=== PATIENT | male | born 1955 | race Caucasian/White ===

== ENCOUNTER 2018-11-21 10:29 | Outpatient (REF) | payer BC, SELFPAY ==
[2018-11-21 23:34] LABS: Calculated LDL 162 mg/dL; Cholesterol 235 mg/dL (50-200); HDL Cholesterol 42 mg/dL (40-60); Triglyceride 156 mg/dL (30-150)
== END 2018-11-21 10:49 ==
LOC: NCHCN 10:29
PROVIDERS: PCP Physician Assistant Medical; Visit Provider Physician Assistant Medical
DX: Z00.00 Encounter for general adult medical examination without abnormal findings (principal); Z13.220 Encounter for screening for lipoid disorders
CPT/HCPCS: 80048; 80061; 83721

== ENCOUNTER 2018-11-30 08:17 | Outpatient (REF) | payer BC, SELFPAY ==
[2018-11-30 20:15] LABS: Anion Gap 7.7 mmol/L (3-11); BUN 18 mg/dL (7-18); CO2 28.3 mmol/L (21.0-32.0); CREATININE 0.96 mg/dL (0.70-1.30); Chloride 106 mmol/L (98-107); Glucose 101 mg/dL (70-100); Potassium 4.4 mmol/L (3.5-5.1); Sodium 142 mmol/L (136-145)
== END 2018-11-30 08:37 ==
LOC: NCHCN 08:17
PROVIDERS: PCP Physician Assistant Medical; Visit Provider Physician Assistant Medical
DX: Z00.00 Encounter for general adult medical examination without abnormal findings (principal); Z13.228 Encounter for screening for other metabolic disorders
CPT/HCPCS: 80048

== ENCOUNTER 2020-03-28 12:32 | Outpatient (REF) | payer OTHER, SELFPAY ==
[2020-03-28 19:17] LABS: Abs Immature Grans 0.01 10^3/uL (0.0-0.06); Absolute Basophil Count 0.04 10^3/uL (0.0-0.2); Absolute Eosinophil Count 0.12 10^3/uL (0.0-0.7); Absolute Lymphocyte Count 1.42 10^3/uL (1.2-3.4); Absolute Monocyte Count 0.46 10^3/uL (0.1-0.8); Absolute Neutrophil Count 4.65 10^3/uL (1.2-6.7); Basophils % 0.6; Eosinophils % 1.8; HCT 43.8 % (40.0-50.0); HGB 14.8 g/dL (13.5-17.5); Immature Grans % 0.1; Lymphocytes % 21.2; MCH 30.7 pg (27.0-33.0); MCHC 33.8 % (32.0-36.0); MCV 90.9 fL (80-95); Monocytes % 6.9; Neutrophils % 69.4; Nucleated RBC 0 %; Platelet Count 244 10^3/uL (130-400); RBC 4.82 10^6/uL (4.36-5.78); RDW 11.9 % (11.8-14.1); RDW-SD 39.8 fL
[2020-03-28 19:48] LABS: ALT 44 U/L (16-63); AST 26 U/L (15-37); Albumin 4.1 g/dL (3.4-5.0); Alkaline Phosphatase 70 U/L (46-116); BUN 17 mg/dL (7-18); Bilirubin, Total 0.4 mg/dL (0.2-1.0); CREATININE 1.19 mg/dL (0.70-1.30); Calcium 9.1 mg/dL (8.5-10.1); Chloride 106 mmol/L (98-107); Glucose 94 mg/dL (74-106); LDL CHOLESTEROL 169 mg/dL (<100); Potassium 4.7 mmol/L (3.5-5.1); Sodium 143 mmol/L (136-145); TSH (W/Ref FT4) 1.92 uIU/mL (0.36-3.74); Total Protein 7.1 g/dL (6.4-8.2)
[2020-03-28 20:05] LABS: C-Reactive Protein 0.07 mg/dL (0.0-0.3)
[2020-03-28 21:28] LABS: ESR 9 mm/hr (1-20)
== END 2020-03-28 12:52 ==
LOC: NCHCN 12:32
PROVIDERS: PCP Physician Assistant Medical; Visit Provider Physician Assistant
DX: E78.5 Hyperlipidemia, unspecified (principal); R03.0 Elevated blood-pressure reading, without diagnosis of hypertension; H53.412 Scotoma involving central area, left eye
CPT/HCPCS: 80053; 83721; 85652; 84443; 85025; 86140

== ENCOUNTER 2020-04-09 11:25 | Outpatient (REF) | payer OTHER, SELFPAY ==
[2020-04-13 11:53] LABS: Patient Race White; SARS-CoV-2 RNA Undetected (Undetected); SARS-CoV-2 Specimen Source Nasal
== END 2020-04-09 11:45 ==
LOC: NCHCN 11:25
PROVIDERS: PCP Physician Assistant; Visit Provider Physician Assistant
DX: Z20.828 Contact with and (suspected) exposure to other viral communicable diseases (principal)
CPT/HCPCS: U0003

== ENCOUNTER 2020-04-12 02:42 | Outpatient (CLI) | payer OTHER, SELFPAY ==
--- NOTE | 2020-04-12 | DI.US_ITS ---
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 COMPARISON: No exams were available for comparison FINDINGS: Duplex evaluation of the carotid circulation was performed according to the usual protocol. There is little if any visible atheromatous plaque in the region surveyed. There is bilateral antegrade vert ebral flow. There is no significant flow velocity elevation in the common, internal, or external car otid arteries on the right or left. IMPRESSION: No evidence of a hemodynamically significant carotid stenosis. DATA REPOSITORY:
== END 2020-04-12 03:02 ==
PROVIDERS: PCP Physician Assistant; Visit Provider Physician Assistant
DX: E78.5 Hyperlipidemia, unspecified (principal); H53.412 Scotoma involving central area, left eye; R03.0 Elevated blood-pressure reading, without diagnosis of hypertension
CPT/HCPCS: 93880

== ENCOUNTER 2020-09-26 14:52 | Outpatient (REF) | payer OTHER, SELFPAY ==
[2020-09-27 16:59] LABS: PSA, Screening 1.8 ng/mL (0.0-4.5)
== END 2020-09-26 14:53 | disposition home or self-care (01) ==
LOC: NCHCN 14:52
PROVIDERS: PCP Physician Assistant; Visit Provider Physician Assistant
DX: R36.1 Hematospermia (principal); Z12.5 Encounter for screening for malignant neoplasm of prostate
CPT/HCPCS: 84153

== ENCOUNTER 2020-09-30 02:30 | Outpatient (CLI) | payer OTHER, SELFPAY ==
--- NOTE | 2020-09-30 | DI.US_ITS ---
Exam(s) US SCROTUM EXAM: US SCROTUM CLINICAL HISTORY: HEMATOSPERMIA, R36.1 TECHNIQUE: Ultrasound of the testes performed using grayscale, color, and Doppler imaging. COMPARISON: None FINDINGS: RIGHT HEMISCROTUM: The right testicle exhibits normal size and echo architecture with no evidence of intratesticular mas s. Vascular flow was demonstrated within the right testicle, including arterial waveforms. The epididymis appears unremarkable. There are no epididymal head cysts. Small hydrocele evident. Also small varicocele. LEFT HEMISCROTUM: The left testicle exhibits normal size and echo architecture with no evidence of intratesticular mass . Vascular flow is demonstrated within the left testicle, including arterial waveforms. Small hydrocele. No varicocele. IMPRESSION: 1. No evidence of testicular mass nor testicular torsion. 2. Small bilateral hydroceles. 3. Small varicocele right-side. DATA REPOSITORY:
== END 2020-09-30 02:50 ==
PROVIDERS: PCP Physician Assistant; Visit Provider Physician Assistant
DX: R36.1 Hematospermia (principal); N43.3 Hydrocele, unspecified
CPT/HCPCS: 76870

== ENCOUNTER 2020-10-04 10:00 | Outpatient (REF) | payer OTHER, SELFPAY ==
[2020-10-04 15:17] LABS: Bacteria Negative HPF (Negative); C & S Indicated? No; Casts Negative LPF (Negative); Crystals Mod Calcium Oxalate HPF (Negative); Epithelial Cells Negative HPF (Negative); Mucus Negative (Negative); Other Cells Negative (Negative); RBC 0-2 HPF (0-2)
[2020-10-08 10:24] LABS: Chlamydia Result Negative (Negative); GC Result Negative (Negative)
== END 2020-10-04 10:01 | disposition home or self-care (01) ==
LOC: NCHCN 10:00
PROVIDERS: PCP Physician Assistant; Visit Provider Physician Assistant
DX: R36.1 Hematospermia (principal)
CPT/HCPCS: 87491; 87591; 81015

== ENCOUNTER 2020-10-31 13:17 | Outpatient (REF) | payer OTHER, SELFPAY ==
[2020-10-31 19:11] LABS: ALT 53 U/L (16-63); AST 28 U/L (15-37); Alkaline Phosphatase 75 U/L (46-116); Anion Gap 5.8 mmol/L (3-11); BUN 22 mg/dL (7-18); Bilirubin, Total 0.5 mg/dL (0.2-1.0); CO2 30.2 mmol/L (21.0-32.0); CREATININE 1.2 mg/dL (0.70-1.30); Calcium 9.1 mg/dL (8.5-10.1); Chloride 106 mmol/L (98-107); Glucose 150 mg/dL (74-106); LDL CHOLESTEROL 125 mg/dL (<100); Potassium 4.1 mmol/L (3.5-5.1); Sodium 142 mmol/L (136-145)
[2020-10-31 19:24] LABS: Bacteria Negative HPF (Negative); C & S Indicated? No; Casts Negative LPF (Negative); Crystals Negative HPF (Negative); Epithelial Cells Negative HPF (Negative); Mucus Negative (Negative); Other Cells Negative (Negative); WBC Negative HPF (0-5)
== END 2020-10-31 13:18 | disposition home or self-care (01) ==
LOC: NCHCN 13:17
PROVIDERS: PCP Physician Assistant; Visit Provider Physician Assistant
DX: E78.5 Hyperlipidemia, unspecified (principal); R31.21 Asymptomatic microscopic hematuria
CPT/HCPCS: 80053; 83721; 81015

== ENCOUNTER → 2020-12-19 11:08 | Outpatient (BNVA) | payer OTHER, SELFPAY | PROVIDERS: PCP Physician Assistant; Referring Provider Physician Assistant; Visit Provider Nurse Practitioner Gerontology | DX: R31.29 Other microscopic hematuria (principal); N52.9 Male erectile dysfunction, unspecified; Z87.438 Personal history of other diseases of male genital organs | CPT/HCPCS: 99205 ==

== ENCOUNTER → 2021-06-19 09:51 | Outpatient (BNVA) | payer OTHER, SELFPAY | PROVIDERS: PCP Physician Assistant; Referring Provider Physician Assistant; Visit Provider Nurse Practitioner Gerontology | DX: R31.29 Other microscopic hematuria (principal); Z87.438 Personal history of other diseases of male genital organs | CPT/HCPCS: 81003; 99214 ==

== ENCOUNTER 2021-09-23 20:31 | Outpatient (REF) | payer MEDICARE, SELFPAY ==
[2021-09-23 20:25] LABS: ALT 50 U/L (16-63); AST 28 U/L (15-37); Albumin 3.9 g/dL (3.4-5.0); Alkaline Phosphatase 78 U/L (46-116); Anion Gap 7.8 mmol/L (3-11); BUN 21 mg/dL (7-18); Bilirubin, Total 0.7 mg/dL (0.2-1.0); CO2 29.2 mmol/L (21.0-32.0); CREATININE 1.1 mg/dL (0.70-1.30); Calcium 8.8 mg/dL (8.5-10.1); Calculated LDL 173 mg/dL (<100); Chloride 106 mmol/L (98-107); Cholesterol 238 mg/dL (<200); Glucose 95 mg/dL (74-106); HDL Cholesterol 42 mg/dL (40-60); Sodium 143 mmol/L (136-145); Total Protein 6.9 g/dL (6.4-8.2); Triglyceride 119 mg/dL (<150)
== END 2021-09-23 20:32 | disposition home or self-care (01) ==
LOC: NCHCN 20:31
PROVIDERS: PCP Physician Assistant; Visit Provider Physician Assistant
DX: E78.5 Hyperlipidemia, unspecified (principal); R73.03 Prediabetes
CPT/HCPCS: 80053; 80061

== ENCOUNTER 2022-03-31 14:02 | Outpatient (REF) | payer MEDICARE, SELFPAY ==
[2022-03-31 20:32] LABS: Calculated LDL 145 mg/dL (<100); Cholesterol 217 mg/dL (<200); HDL Cholesterol 46 mg/dL (40-60); Triglyceride 131 mg/dL (<150)
== END 2022-03-31 14:03 | disposition home or self-care (01) ==
LOC: NCHCN 14:02
PROVIDERS: PCP Physician Assistant; Visit Provider Physician Assistant
DX: E78.5 Hyperlipidemia, unspecified (principal)
CPT/HCPCS: 80061

== ENCOUNTER → 2022-06-18 10:20 | Outpatient (BNVA) | payer MEDICARE, SELFPAY | PROVIDERS: PCP Physician Assistant; Referring Provider Physician Assistant; Visit Provider Nurse Practitioner Gerontology | DX: R36.1 Hematospermia (principal); N52.9 Male erectile dysfunction, unspecified; R31.29 Other microscopic hematuria | CPT/HCPCS: 36415; 81003; 99214 ==

== ENCOUNTER 2022-06-18 15:46 | Outpatient (REF) | payer MEDICARE, SELFPAY ==
[2022-06-18 12:27] LABS: Bilirubin Negative (Negative); Blood Trace-intact (Negative); Clarity Clear (Clear); Glucose Negative (Negative); Ketones Negative (Negative); Leukocyte Esterase Negative (Negative); Nitrite Negative (Negative); Urobilinogen 0.2 EU/dL (Up TO 0.2)
[2022-06-18 12:33] LABS: Bacteria Negative HPF (Negative); C & S Indicated? No; Casts Negative LPF (Negative); Crystals Negative HPF (Negative); Epithelial Cells Rare HPF (Negative); Mucus Negative (Negative); RBC 0-2 HPF (0-2); WBC Negative HPF (0-5)
== END 2022-06-18 15:47 | disposition home or self-care (01) ==
LOC: LBN 15:46
PROVIDERS: PCP Physician Assistant; Visit Provider Nurse Practitioner Gerontology
DX: R31.29 Other microscopic hematuria (principal); R39.9 Unspecified symptoms and signs involving the genitourinary system
CPT/HCPCS: 81003; 81015; 84153

== ENCOUNTER 2022-10-16 13:23 | Outpatient (REF) | payer MEDICARE, SELFPAY ==
[2022-10-16 19:11] LABS: ALT 58 U/L (16-63); AST 31 U/L (15-37); Albumin 3.9 g/dL (3.4-5.0); Alkaline Phosphatase 78 U/L (46-116); Anion Gap 5.1 mmol/L (3-11); BUN 20 mg/dL (7-18); Bilirubin, Total 0.5 mg/dL (0.2-1.0); CO2 30.9 mmol/L (21.0-32.0); CREATININE 1.3 mg/dL (0.70-1.30); Chloride 105 mmol/L (98-107); Estimated GFR 60.21 (mL/min/1.73m2); Glucose 101 mg/dL (74-106); LDL CHOLESTEROL 153 mg/dL (<100); Potassium 4.5 mmol/L (3.5-5.1); Sodium 141 mmol/L (136-145); Total Protein 7.4 g/dL (6.4-8.2)
== END 2022-10-16 13:24 | disposition home or self-care (01) ==
LOC: NCHCN 13:23
PROVIDERS: PCP Physician Assistant; Visit Provider Physician Assistant
DX: E78.5 Hyperlipidemia, unspecified (principal); R73.03 Prediabetes
CPT/HCPCS: 80053; 83721

== ENCOUNTER 2023-09-24 08:51 | Outpatient (REF) | payer MEDICARE, SELFPAY ==
[2023-09-24 18:56] LABS: ALT 41 U/L (16-63); AST 26 U/L (15-37); Albumin 3.8 g/dL (3.4-5.0); Alkaline Phosphatase 73 U/L (46-116); Anion Gap 5.1 mmol/L (3-11); BUN 23 mg/dL (7-18); Bilirubin, Total 0.5 mg/dL (0.2-1.0); CO2 29.9 mmol/L (21.0-32.0); CREATININE 1.1 mg/dL (0.70-1.30); Calculated LDL 110 mg/dL (<100); Chloride 105 mmol/L (98-107); Cholesterol 164 mg/dL (<200); Estimated GFR 73.12 (mL/min/1.73m2); Glucose 114 mg/dL (74-106); HDL Cholesterol 44 mg/dL (40-60); Potassium 4.3 mmol/L (3.5-5.1); Sodium 140 mmol/L (136-145); Total Protein 6.8 g/dL (6.4-8.2); Triglyceride 53 mg/dL (<150)
== END 2023-09-24 08:52 | disposition home or self-care (01) ==
LOC: NCHCN 08:51
PROVIDERS: PCP Physician Assistant; Visit Provider Physician Assistant
DX: E78.5 Hyperlipidemia, unspecified (principal)
CPT/HCPCS: 80053; 80061

== ENCOUNTER → 2024-02-01 08:16 | Outpatient (BNVA) | payer MEDICARE, SELFPAY | PROVIDERS: PCP Physician Assistant; Referring Provider Physician Assistant; Visit Provider Surgery | DX: R19.4 Change in bowel habit (principal) | CPT/HCPCS: 99213 ==

== ENCOUNTER 2024-02-09 06:08 | Day surgery (SDC) | payer MEDICARE, SELFPAY ==
--- NOTE | 2024-02-08 19:27 | PDOC.DSDIS_ITS ---
Date of service: 02/09/24 Time of Service: 07:52 Discharge Plan Disposition Patient Disposition: Home Condition: Good Discharge Details Reason For Visit: Diagnostic colonoscopy Attending Provider: Hal Silveira Primary Care Provider: Ghislaine Johnson Home Meds and New Rx's Prescriptions: Continued sildenafil [Viagra] 50 mg tablet 50 mg PO DAILY PRN (Reason: sexual activity) Qty: 4 0RF Rx Instructions: administer 30 minutes to 4 hours before activity atorvastatin 20 mg tablet 80 mg PO DAILY dorzolamide-timolol 22.3-6.8 mg/mL drops 1 drp ophthalmic (eye) BID Patient Comments: INSTILL 1 DROP INTO THE RIGHT EYE TWO TIMES A DAY Discontinued polyethylene glycol 3350 17 gram/dose powder 238 g PO ONCE Qty: 238 0RF Rx Instructions: take per colonoscopy instructions bisacodyl [Dulcolax (bisacodyl)] 5 mg tablet,delayed release (DR/EC) 5 mg PO ONCE Qty: 4 0RF Rx Instructions: take per colonoscopy instructions Discharge Instructions Instructions: Diverticulosis Additional Instructions: Eduardo, I hope you are comfortable during the colonoscopy today. Everything went very smoothly. Your prep was excellent and I could see everything fine. As we surmised ahead of time, the most obvious thing that I noticed was diverticulos is. I suspect this is probably what is causing the change in character of your stools. The rest of the colon looked pretty normal. I did not see any obvious signs of ulcerative colitis, Crohn's disease, or any other inflammatory problems. As I mentioned before hand, I did do several biopsies along the length of the colon to make sure I am not missing anything that may not be apparent to the naked eye. My typical recommendations for patients with diverticulosis focus on increasing dietary fiber. There are number of food products that are loaded with fiber. I will attach a printout summarizing some of those things. I also recommend the patient's like you supplement their diet with an [id number] product. Anything that contains psyllium is an excellent source of fiber. Most patients need to add about 10 to 20 g of supplementary fiber to the regular diet. If you pay attention to food labels, you will see that this is quite a bit. If you are able to buy pure psyllium finely ground (this is available on [employer]) you can mix it into basically anything that she would like to eat or drink. It typically does not change the flavor or consistency very much if you spread it throughout the course of your day. It will take about a week or 2 for me to get the results of the biopsies, but once I have those I will be in touch. Otherwise, I did not see any other problems on your colonoscopy and from a screening standpoint, you are good for another colonoscopy in 10 years. 1. If tolerated, consume a soft, low fiber diet for 1-2 days. 2[address] Do not drive, drink alcohol, operate machinery, make critical decisions, or do activities that require coordination or balance for 24 hours. 3. Because air was put into your colon during the procedure, expelling air from your rectum (passing gas or farting) is normal. 4. You may not have a bowel movement for 1-3 days because of the colonoscopy prep. This is normal. 5. Go directly to the emergency room if you notice any of the following: Develop chills (warm to touch), or if you have a thermometer and your temperature is above 101 Difficulty breathing or difficultly swallowing Persistent vomiting Severe abdominal pain, other than gas cramps Severe chest pain Black, tarry stools Any bleeding ? exceeding one tablespoon 6. Call your physician if the site where your intravenous was started becomes red, swollen, painful, and warm to touch. 7. Your physician has reviewed your pre-procedure medications. Please continue to take those medications as previously ordered. You will be given specific information/education regarding any changes to your medications before leaving. Activity:: Activity as Tolerated Diet:: As Tolerated Discharge Orders Discharge Orders: Discharge Order (Routine); Ordered 02/08/24 Ordered By: Hal Silveira DS: Diagnosis Discharge Diagnosis (1) Change in bowel habit: Status: Acute Asessment and Plan: Follow-up on biopsy results
--- NOTE | 2024-02-08 19:28 | W.COLOREPORT ---
Date of service: 02/09/24 Time of Service: 07:57 Colonoscopy Report Date of procedure: 02/09/24 Pre-op diagnosis general: Change in bowel habits Post-op diagnosis procedure note: other (Diverticulosis) Procedure: colonoscopy with random colon biopsies Surgeon: Hal Silveira Anesthesia Type: General:No Airway Estimated blood loss (mL): 10 Pathology: other (Random cold forceps biopsies of the colon, random cold forceps biopsies of the rectum) Complications: None Disposition: same day Indications: Eduardo is a 68 year old man with a chief complaint of change in the character and consistency of his stools. He thinks it has been going on for about 6 months, and the symptoms have been slowly evolving. The first difference that he noticed was a decreased caliber in his stools. Prep: Miralax/Dulcolax Procedure Start Time: 07:35 Procedure End Time: 07:51 Retraction Time: 10 Findings: Sigmoid diverticulosis Procedure Description: After the induction of anesthesia, and with the patient in left lateral decubitus position, I began by performing an external anorectal exam.? Perineum and skin were normal, as was the anal verge.? There was no evidence of external hemorrhoids.? Next, I performed a digital rectal exam.? I did not appreciate any abnormal findings.? Next, I advanced a colonoscope into the rectal vault.? I performed retroflexion.? This appeared normal.? Using insufflation, I then advanced the colonoscope beyond the rectal folds and into the sigmoid colon before advancing towards the cecum.? The quality of the prep was outstanding.? There was sigmoid diverticulosis. the scope was noted to be in the cecum by identification of the ileocecal valve and appendiceal orifice.? I then began withdrawing the colonoscope using repeated irrigation as necessary for full evaluation of the colonic mucosa. In light of the patient's previous biopsies showing some colitis, I elected to perform random cold forceps biopsies along the length of the colon today. There were no obvious signs of inflammation that would be consistent with Crohn's disease or ulcerative colitis. once the scope was withdrawn to the level of the rectum, great care was taken to examine portions of the rectal folds.? In addition to the colon biopsies mentioned above, I also performed cold forceps biopsies of the rectum that were sent as a separate pathology specimen. Finally, the scope was withdrawn and the patient was brought to the same-day surgery recovery unit as the anesthetic wore off. ?The findings and instructions were shared with the patient prior to discharge. [place] Bowel Prep [place] Bowel Prep Right Colon: 3 Left Colon: 3 Transverse Colon: 3 Total Score: 9
[2024-02-09 06:29] VITALS: BP 142/96; PULSE 78; RESP 16; TEMP 36.7; O2SAT 97
[2024-02-09] MEDS: Lactated Ringers 1,000 ML 80 ML IV (06:42)
--- NOTE | 2024-02-09 07:06 | W.ANESPRE ---
General Info Date of Service Date Performed: 02/09/24 Height: 5 ft 5 in Weight: 91.3 kg Body Mass Index (BMI): 33.5 Surgical Procedure: Operation Date: 02/09/24 07:35 Proposed Procedure Side Surgeon kris Silveira MD Meds Allergies and Home Medications Allergies Allergy/AdvReac Type Severity Reaction Status Date / Time Penicillins Allergy Unknown rash Unverified 02/01/24 08:23 Home Medication ?Medication ?Instructions ?Recorded sildenafil 50 mg tablet (Viagra) 50 mg PO DAILY PRN sexual activity 06/18/22 #4 tabs atorvastatin 20 mg tablet 80 mg PO DAILY 07/08/23 dorzolamide 22.3 mg-timolol 6.8 1 drp ophthalmic (eye) BID 02/04/24 mg/mL eye drops Current Visit Medications: Current Medications Generic Name Dose Route Start Last Admin Trade Name Freq PRN Reason Stop Dose Admin Ringer's Solution 1,000 mls @ 80 mls/hr 02/09/24 06:00 02/09/24 06:42 IV 03/09/24 23:59 80 mls/hr INFUSION LIZBET Administration IV Miscellaneous Supplies 1 each 02/09/24 06:00 Iv Access IV 03/09/24 23:59 DIRECTED LIZEBT Ondansetron HCl 4 mg 02/08/24 19:30 Ondansetron 4 Mg/2 Ml Vial IVP 03/09/24 19:29 Q4H PRN PRN Nausea / Vomiting Sodium Chloride 0 ml 02/09/24 06:00 Normal Saline Flush 10 Ml Syr IV 03/09/24 23:59 PRN PRN Sodium Chloride 0 ml 02/09/24 06:00 Normal Saline 10 Ml Vial IJ 03/09/24 23:59 DIRECTED PRN Sterile Water 0 ml 02/09/24 06:00 Water,Injection,Sterile 10 Ml Vial IJ 03/09/24 23:59 DIRECTED PRN PFSH Active Problems Active Problems: Problem Status Onset Code Change in bowel habit Acute R19.4 Asymptomatic microscopic hematuria Acute R31.21 Prostate nodule Acute N40.2 Hydrocele Acute N43.3 Hypertension Chronic I10 Erectile dysfunction Acute N52.9 Medical History Medical History (Updated 02/04/24 @ 11:32 by Beena Hickey RN) Glaucoma (increased eye pressure) Lower urinary tract symptoms (LUTS) Ganglion cyst Seborrheic keratosis HLD (hyperlipidemia) Central scotoma Migraine headache Pain in shoulder Hematospermia Microscopic hematuria Varicocele Bilateral hydrocele Obesity Surgical History Surgical History (Updated 01/05/24 @ 13:26 by Lara Moore RN) History of colonoscopy (~2013) Tobacco Smoking/Tobacco Use Status: Never Alcohol Alcohol Intake: current Alcohol intake frequency: a few times a month Substance Use Substance use: Never Substance use type: does not use Vital Signs and Lab Results Vital Signs Most Recent Vital Signs in EMR: Most Recent Vital Signs Temp Pulse Resp BP Pulse Ox 36.7 C 78 16 142/96 H 97 02/09/24 06:29 02/09/24 06:29 02/09/24 06:29 02/09/24 06:29 02/09/24 06:29 Lab Results Blood Type / Crossmatch: No Data to Display Complete Blood Count: No Data to Display Complete Metabolic Panel: No Data to Display Liver Function Panel: No Data to Display Coagulation Panel: No Data to Display Cardiac Panel: No Data to Display Arterial Blood Gas: No Data to Display Venous Blood Gas: No Data to Display Pancreas Panel: No Data to Display Thyroid Panel: No Data to Display Infectious Disease: No Data to Display Blood Cultures: No Data to Display Toxicology Panel: No Data to Display Imaging and Studies Imaging and Studies Study information below may be from another EMR and interpreted by another provider. Please see original notes in EMR for more complete details. Carotid Artery Summary:: 04/12/20: FINDINGS: Duplex evaluation of the carotid circulation was performed according to the usual protocol. There is little if any visible atheromatous plaque in the region surveyed. There is bilateral antegrade vertebral flow. There is no significant flow velocity elevation in the common, internal, or external carotid arteries on the right or left. Anesthesia Assessment and Plan Anesthesia History Personal History: No History of Anesthesia Complications Family History: No Family History of Anesthesia Complications Exercise Tolerance Exercise Tolerance: Metabolic Equivalents>4 Pertinent Negatives Pertinent Negatives: No Symptoms of GERD, No Major Cardiovascular Symptoms or Complaints and No Major Pulmonary Symptoms or Complaints Cardiac & Pulmonary Exam Cardiac Exam: Normal S1/S2 Heart Sounds Pulmonary Exam: Clear Bilateral Breath Sounds Implantable Cardiac Device Does patient have a Pacemaker or an ICD?: No Airway Exam Known Difficult Airway: No Mallampati Class: 1 Mouth Opening: Normal (> 3cm) Thyromental Distance: Greater than 3 cm Neck Range of Motion: Full ROM Neck Circumference: Normal Teeth Condition: Removable Dentures/Plates Upper ASA Classification ASA Score: ASA 2 Emergency Case?: No NPO Status NPO Status: NPO Clears >2 hours, Solids >8 hours Anesthesia Plan Resuscitation Status: Full Code Anesthesia Technique: General Anesthesia Airway Planned: Natural Airway Monitors Used: Standard Monitors
[2024-02-09 07:09] VITALS: BMI 33.5
--- NOTE | 2024-02-09 07:44 | BOWEL_PTH ---
PATIENT: Eduardo Parks LOC: [facility] U#:[id number] AGE/SX: 68/M ROOM: RE02/09/[address]: Hal Silveira MD : 1955 BED: DIS: 02/09/2024 SPEC #: [id number] RECD: 02/09/24 12:35 STATUS: VAIBHAV REQ #: [id number] JEANNIE: 02/09/24 07:[address]: Hal Silveira DEPT: Surgical Specimen RECD BY: Rachel Bonilla ENTERED: 02/09/24 12:36 SP TYPE: Bowel OTHR DR: Ghislaine Johnson Tissues: 1 - BIOPSY BOWEL 2 - BIOPSY BOWEL Procedures: GROSS AND MICRO LEVEL 4 Comments: [id number]
[2024-02-09 07:58] VITALS: BP 113/94; PULSE 76; RESP 16; TEMP 36.5; O2SAT 97
[2024-02-09 08:19] VITALS: BP 117/81; PULSE 71; RESP 16; TEMP 36.2; O2SAT 98
--- NOTE | 2024-02-09 11:20 | W.ANESPOSTOP ---
Postoperative Evaluation Date, Time and Location Date Performed: 02/09/24 Time Performed: :25 Patient Location: Day Surgery Unit Vital Signs Most Recent Imported Vital Signs: Most Recent Vital Signs Temp Pulse Resp BP Pulse Ox 36.2 C L 71 16 117/81 98 02/09/24 08:19 02/09/24 08:19 02/09/24 08:19 02/09/24 08:19 02/09/24 08:19 Pain Score Most Recent Pain Score: Most Recent Pain Score Pain Level 0 02/09/24 08:19 Assessment Mental Status: Awake (Alert & Oriented to Patient Baseline) Airway and Respiratory Function: Patent airway with normal (patient baseline) respiratory exam Cardiovascular Function: Hemodynamically Stable Hydration Status: Adequately Hydrated Nausea & Vomiting: No Nausea or Vomiting Pain: Pt. Denies Any Pain Peripheral Nerve Block: Patient did not receive a nerve block
== END 2024-02-09 08:45 | disposition home or self-care (01) ==
LOC: SUR 06:09
PROVIDERS: PCP Physician Assistant; Visit Provider Surgery
PROC: 0DJD8ZZ Inspection of Lower Intestinal Tract, Via Natural or Artificial Opening Endoscopic (ICD-10-PCS; CPT 45378; principal; 2024-02-09 07:30)
DX: R19.4 Change in bowel habit (principal); K57.30 Diverticulosis of large intestine without perforation or abscess without bleeding
CPT/HCPCS: 45380; 88305; J2704

== ENCOUNTER 2024-05-19 19:47 | Outpatient (REF) | payer MEDICARE, SELFPAY ==
[2024-05-19 19:17] LABS: Abs Immature Grans 0.02 10^3/uL (0.0-0.06); Absolute Basophil Count 0.06 10^3/uL (0.0-0.2); Absolute Eosinophil Count 0.12 10^3/uL (0.0-0.7); Absolute Lymphocyte Count 1.86 10^3/uL (1.2-3.4); Absolute Monocyte Count 0.54 10^3/uL (0.1-0.8); Absolute Neutrophil Count 3.98 10^3/uL (1.2-6.7); Basophils % 0.9 %; Eosinophils % 1.8 %; HCT 42.2 % (40.0-50.0); HGB 14.4 g/dL (13.5-17.5); Immature Grans % 0.3 %; Lymphocytes % 28.3 %; MCHC 34.1 % (32.0-36.0); MCV 91 fL (80-95); MPV 10.7 fL (8.0-11.0); Monocytes % 8.2 %; Neutrophils % 60.5 %; Platelet Count 247 10^3/uL (130-400); RBC 4.65 10^6/uL (4.36-5.78); RDW 11.9 % (11.8-14.1); RDW-SD 39.4 fL; WBC 6.58 10^3/uL (4.4-10.8)
[2024-05-19 19:38] LABS: ALT 35 U/L (16-63); AST 29 U/L (15-37); Albumin 3.8 g/dL (3.4-5.0); Alkaline Phosphatase 81 U/L (46-116); Anion Gap 8.9 mmol/L (3-11); BUN 19 mg/dL (7-18); Bilirubin, Total 0.39 mg/dL (0.2-1.0); CO2 27.1 mmol/L (21.0-32.0); CREATININE 1.2 mg/dL (0.70-1.30); Calcium 9.1 mg/dL (8.5-10.1); Chloride 106 mmol/L (98-107); Estimated GFR 65.46 (mL/min/1.73m2); Glucose 114 mg/dL (74-106); Potassium 3.8 mmol/L (3.5-5.1); Sodium 142 mmol/L (136-145); TSH (W/Ref FT4) 2.86 uIU/mL (0.36-3.74); Total Protein 7.2 g/dL (6.4-8.2)
--- OUTSIDE RECORDS SUMMARY | 2024-05-19 19:48 | XMS_ITS | Encounter Summary ---
Author Organization [facility] Address [address] [place] [address] Care Team Providers Care Cabinetmaker Helper Name Role Phone Unknown, Provider Primary Care Provider Jadyn gonzales Encounter Details Date Type Department Care Team (Late st Contact Info) Description 02/09/2024 Lab Requisition [facility] Pathology & Laboratory Medicine - [address] [address] Hal Silveira MD [address] [place] [address], [address] [place], [place] [id number] Change in bowel habit Social History Tobacco Use Types Packs/Day Years Used Date Smoking Tobacco: Never Assessed Interpersonal Safety Answer Date Record ed Physically Hurt Never 09/27/2020 Verbally Threaten Not on file 09/27/2020 Sex and Gender Information Value Date Recorded Sex Assigned at Not on file Legal Sex Male 11:35 EDT Gender Identity Not on file Sexual Orientation Not on file documented as of this encounter Plan of Treatment Not on file documented as of this encounter Procedures Procedure Name Priority Date/Time Associated Diagnosis Comments SURGICAL PATHOLOGY Today 02/09/2024 7:44 EDT Change in bowel habit documented in this encounter Results * SURGICAL PATHOLOGY (02/09/2024 7:44 EDT) Note to Patient The following pathology results have been interpreted by your pathologist and may be available to you before your health provider has had the opportunity to review them. Please allow time for your provider to receive these results and explore management options, if applicable. 02/15/2024 15:01 EDT [facility] Final Diagnosis A. COLON, BIOPSY: - Colonic mucosa without significant diagnostic abnormality. B. RECTUM, BIOPSY: - Colonic mucosa without significant diagnostic abnormality. 02/15/2024 15:01 [facility] Attestation By the signature below, the attending physician certifies that they have 1) personally conducted a gross and/or microscopic examination of the described specimen(s), and/or personally interpreted the results of laboratory testing of the described specimen(s), and 2) personally rendered or confirmed the above diagnosis. 02/15/2024 15:01 [facility] at 1501 Clinical History Diagnostic colonoscopy, change in bowel habits; clinical diagnosis code: R19.4 02/15/2024 15:01 [facility] Gross Description A. Received in formalin labelled with proper patient identification (initials W, D) and random colon biopsies are 6 vanegas focally brown tissues (0.4 x 0.1 x 0.1 cm to 0.7 x 0.2 x 0.1 cm). Entirely submitted in A1-A2. B. Received in formalin labelled with proper patient identification (initials W, D) and rectal biopsies is a single vanegas and brown tissue (0.4 x 0.3 x 0.2 cm). Entirely submitted in B1. Sonia Burns 02/10/2024 8:38 02/15/2024 15:01 [facility] Performing Lab [facility] 02/15/2024 15:01 [facility] Scanned Images 02/15/2024 15:01 [facility] Tissue SPECIMEN FROM RECTUM / Unknown 02/09/2024 7:44 EDT 02/09/2024 20:33 EDT Tissue specimen (specimen) SPECIMEN FROM RECTUM / Unknown 02/09/2024 7:44 EDT 02/09/2024 20:33 EDT us Hal Silveira MD PATHOLOGY ORDERABLES Final Resu lt [facility] [address] [place] [id number] documented in this encounter Visit Diagnoses Diagnosis Change in bowel habit documented in this encounter Care Teams Cabinetmaker Helper Relationship Specialty Start Date End Date Unknown, Provider, PCP - General 01/16/24 documented as of this encounter
--- OUTSIDE RECORDS SUMMARY | 2024-05-19 19:48 | XMS_ITS | Continuity of Care Document ---
Author Organization [facility], [facility] Address [address] [place] [address] Care Team Providers Care Skylights Assembler Name Role Phone GHISLAINE ALANIS Primary Care Provider NARESH EGORGES Finish Rolls Operator [facility] Urologist Assessment Encounter Date Assessment Date Assessment LastModified by Organization Details LastModified Time 05/19/2024 05/19/2024 The total time devoted to today's encounter, including both the crlt-ub-zbmm time with the patient and/or family/caregi broderick and gps-prrk-fg-f brendon time I personally spent is 30 minutes. [email or web address] Not available 05/19/2024 17:11:06 Plan of Treatment Reminders Order Date Submit Date Provider Last Modified By Organization Details Last Modified Time Details Appointments Follow Up 30 2024 04:30P Efrem ALANIS Not available Not available Not available Annual Wellness Exam 40 2024 08:00A Efrem ALANIS Not available Not available Not available Lab PSA, serum or plasma 2024 025 [facility] (Registration ), [address] [place] [address] [place], [address], 05/19/2024 17:20:32 culture, stool 2024 025 [facility] (Registration ), [address] [place] [address] [place], [address], 05/19/2024 16:53:11 O&P (ova & parasites ), stool [address] [facility] (Registration ), [address] [place] [address] [place], [address], 05/19/2024 16:53:12 CBC w/ auto diff 2024 025 [facility] (Registration ), [address] [place] [address] [place], [address], 05/19/2024 19:20:41 CMP, serum or plasma 2024 025 [facility] (Registration ), [address] [place] [address] [place], [address], 05/19/2024 19:41:46 TSH, serum, reflex free T4 2024 025 [facility] [address] [place] [address] [place], [address], 05/19/2024 17:20:32 H pylori Ag, stool [address] [facility] (Registration ), [address] [place] [address] [place], [address], 05/19/2024 16:53:11 C diff toxin DNA, stool [address] [facility] (Registration ), [address] [place] [address] [place], [address], 05/19/2024 16:53:12 giardia + cryptospo ridium Ag, stool [address] [facility] (Registration ), [address] [place] [address] [place], [address], 05/19/2024 16:53:11 Referral None recorded. Procedures None recorded. Surgeries None recorded. Imaging None recorded. Medication Orders None recorded. Patient TargetsNo targets recorded. Patient Instructions Encounter Date Encounter Id Patient Instructions Last Modified By Organization Details Last Modified Time 05/19/2024 [id number] stool studies ordered- bring in sample probiotics and fiber daily blood work today Not available 05/19/2024 16:55:05 Reason for Referral None Reported. Problems Name Problem SNOMED Code Status Onset Date Resolution Date Notes Provider Name and Address Organization Details Recorded Time Adult health examinat ion Active 201403/31/20 22 - Comments only - Ghislaine MCKEON - Pfizer COVID Bivalent booster and high-dos e flu received today. Up-to-da te on colonosc opy. Checking a lipid panel today. Up-to-da te on other blood work. Discussi on about healthy lifestyl e choices. Discussi on on stress manageme nt Problem Code: Z00.00; Problem Code Type: ICD-10; Not Available [facility] 3 05:51:15 Ganglion cyst of left wrist 36361639764 9100 Active 2015 Problem Code: M67.432; Problem Code Type: ICD-10; Not Available [facility] 3 05:51:15 Senile hyperker atosis 466731406 Active 2015 Problem Code: L82.1; Problem Code Type: ICD-10; Not Available [facility] 3 05:51:15 Elevated blood-pr essure reading without diagnosi s of hyperten fiona 137897260 Completed 201702/11/2024 10/17/19 23 - Comments only - Ghislaine MCKEON - Blood pressure did come down after sitting. Advised patient to check blood pressure at home and call if consiste ntly greater than 140/90. Advised to limit sodium to 2000 mg/day. Encourag e healthy eating and exercise . Problem Code: R03.0; Problem Code Type: ICD-10; [address], [place], [address] , [facility]. 4 11:35:53 Hyperlip idemia 03367579 Active 201910/17/19 23 - Comments only - Ghislaine MCKEON - Checking direct LDL and CMP as atorvast atin was increase d to 40 mg daily. He has not taken it for the past week. Problem Code: E78.5; Problem Code Type: ICD-10; Not Available [facility] 3 05:51:16 Central scotoma of left eye 01639067759 9100 Active 201905/16/20 20 - Comments only - Ghislaine MCKEON - - no concerni ng findings by [facility] op[facility] [facility]y. Per pt this has now resolved as well. keep appt with Dr Georges for f/u with visual field testing. - will continue to monitor Problem Code: H53.412; Problem Code Type: ICD-10; Not Available [facility] 3 05:51:16 Migraine 15793563 Active 201905/16/20 20 - Comments only - Ghislaine MCKEON - - he has not been having these recently - will continue to monitor Problem Code: G43.909; Problem Code Type: ICD-10; Not Available [facility] 3 05:51:16 Exposure to communic able disease Completed 201904/10/2020 Problem Code: Z20.828; Problem Code Type: ICD-10; Not Available [facility] 3 05:51:16 Shoulder joint pain 365322818 Active 201905/16/20 20 - Comments only - Ghislaine MCKEON - - likely rotator cuff strain. offered cortison e injectio ns today but pt declined at this time. he declined xrays at this time. reviewed some stretchi ng and strength ening exercise s. recd take ibu 600-800m h TID with food for 14 days. Return to clinic if not improvin g or worsenin g symptoms Problem Code: M25.519; Problem Code Type: ICD-10; Not Available [facility] 3 05:51:17 Disorder of male genital organ 05774260 Completed 202009/06/2020 09/04/19 21 - Comments only - Ghislaine MCKEON - Reassura nce to patient that his exam was normal. We reviewed the anatomy of the testicle s. He is feeling the epididym is. It is nontende r, not inflamed . No signs or symptoms of epididym itis. No masses of the testicle s. Offered testicul ar ultrasou nd but at this time he was good with just having the exam done. Discusse d signs and symptoms to be aware of. Problem Code: N50.9; Problem Code Type: ICD-10; Not Available [facility] 3 05:51:17 Hemosper joão 29102935 Active 2020 Problem Code: R36.1; Problem Code Type: ICD-10; Not Available [facility] 3 05:51:17 Asymptom atic microsco pic hematuri a 72791965792 730749 Active 202011/01/19 21 - Comments only - Ghislaine MCKEON - /hematos permia/v aricocel e/hydroc eles - sending urine for microsco py - referral to urology [facility] for further evaluati on Problem Code: R31.21; Problem Code Type: ICD-10; Not Available [facility] 3 05:51:17 History and physical examinat ion, administ rative Completed 202011/01/2020 11/01/19 21 - Comments only - Ghislaine MCKEON - - 2 year card issued. 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 discusse d RICE. brendon bandage given. recd ibu 600mg every 6 hrs prn. pt wants to hold off on xray for now. he will call back if he decides he wants an xray order sent to [facility]. Problem Code: M25.562; Problem Code Type: ICD-10; Not Available [facility] 3 05:51:18 Prediabe leland 575603044 Active 202010/17/19 23 - Comments only - Ghislaine MCKEON - A1c increase d to 6.2. Discusse d lifestyl e modifica tions. Problem Code: R73.03; Problem Code Type: ICD-10; Not Available [facility] 3 05:51:18 Perforat ion of left tympanic membrane 45488918621 75321 Completed 202211/10/2022 Problem Code: H72.92; Problem Code Type: ICD-10; Not Available [facility] 3 05:51:18 Acute pharyngi tis 842474968 Completed 202212/04/2022 12/04/19 23 - Comments only - Ghislaine MCKEON - Negative rapid strep. COVID testing at home was negative . Benign exam. Finish eardrops no signs of current infectio n of the perforat ed eardrum. Continue care with ENT. Discusse d supporti ve care. Discusse d signs and symptoms to follow-u p. Problem Code: J02.9; Problem Code Type: ICD-10; Not Available [facility] 3 05:51:19 Hypergly cemia 72692624 Completed 202002/10/2023 03/27/20 21 - Comments only - Ghislaine MCKEON - - discussi on about lifestyl e modifica tions with decreasi ng carbs. will do a1c at fasting BW in 6 months Problem Code: R73.9; Problem Code Type: ICD-10; Not Available [facility] 3 05:51:40 Prostate nodule 31305792589 9109 Active [address], [facility] [address] , [facility] 4 15:39:03 Constipa tabitha 57198380 Completed 202302/11/2024 GHISLAINE ALANIS PA-C [address], [facility] [address] , [facility] 4 11:35:45 Divertic darnell of intestin e 16127920 Active 2023 GHISLAINE ALANIS PA-C [address] [place], [facility] [address] , [facility] 4 11:36:14 Problem Notes None recorded. Medical Equipment None Reported. Allergies Allergen ID Allergen Name Allergen Category Reaction Reaction Severity Criticality Documentation Date Start Date Code Code System Note Provider Name and Address Organization Details Recorded Time 11689 Medicinal product containin g penicilli n and acting as antibacte rial agent (product) medicatio n hives moderate Not available 03/26/20232006 12503 05 SNOMED HIVES Aller gyCod e: '8340 61'; Aller gyNam e: 'PENI CILLI N'; Aller gyCon ceptT ype: 'RX Norm' ; Not Available [facility] 3 16:14:35 Medications Name Sig Start Date Stop Date Status Note LastModified by Organization Details LastModified Time atorvasta tin 40 mg tablet TAKE ONE TABLET BY MOUTH EVERY DAY 12/30 completed Patient states he takes it sparatic ally. dose change Not Available Not Available Not Available atorvasta tin 80 mg tablet TAKE ONE TABLET BY MOUTH EVERY DAY 05/19 completed pt reports not taking Not Available Not Available Not Available atorvasta tin 20 mg tablet Take 1 tablet by mouth once a day 2020 active Not Available Not Available Not Avai lable atorvasta tin 10 mg tablet Take 1 tablet by mouth once a day 03/27 completed Not Available Not Available Not Available ibuprofen 800 mg tablet 1 TID 11/20 completed Not Available Not Available Not Available Plavix 75 mg tablet Take 1 tab by mouth daily 05/14 completed Not Available Not Available Not Available ofloxacin 0.3 % ear drops Instill 5 drop into left ear twice a day For 7 days 07/07 completed Per ER visit 11/08/22 Not Available Not Available Not Available meclizine 25 mg tablet Take 1 tablet every 6 hours as needed. 02/02 completed Not Available Not Available Not Available dorzolami de 22.3 mg-timolo l 6.8 mg/mL eye drops INSTILL 1 DROP INTO THE RIGHT EYE TWO TIMES A DAY 05/19 completed pt reports not taking Not Available Not Available Not Available Bactrim DS 800 mg-160 mg tablet 1 TAB twice daily 02/26 completed Not Available Not Available Not Available Vitals Date Recorded Body height Body mass index (BMI) Body weight Oxygen saturation Oxygen saturation in Arterial blood by Pulse oximetry Heart rate Systolic blood pressure Diastolic blood pressure Provider Name and Address Organization Details Last Updated DateTime 5 163.83 cm 34.7 kg/m2 68221.5 9 g 96 % 96 % 84 /min 144 mm[Hg] 84 mm[Hg] DARWIN BEARD MA [facility] 5 16:36:57 Social History Question Answer Notes LastModified by Organizat ion Details LastModified Time Tobacco Smoking Status Never Smoker MARYAM BOOTHE, [facility] 07/07/2023 13:47:26 Would You Say That, In General, Your Health Is Very Good Information not available 07/07/2023 How Often Does Anyone, Including Family, Physically Hurt You? Never Information not available 07/07/2023 How Often Does Anyone, Including Family, Insult Or Talk Down To You? Never Information no t available 07/07/2023 How Often Does Anyone, Including Family, Threaten You With Harm? Never Information not available 07/07/2023 How Often Does Anyone, Including Family, Scream Or Curse At You? Never Information not available 07/07/2023 Within The Past 12 Months, You Worried That Your Food Would Run Out Before You Got Money To Buy More. Never True Information n ot available 07/07/2023 Within The Past 12 Months, The Food You Bought Just Didn't Last And You Didn't Have Money To Get More. Never True Information n ot available 07/07/2023 How Hard Is It For You To Pay For The Very Basics Like Food, Housing, Medical Care, And Heating? Would You Say It Is: Not Hard At All Information not available 07/07/2023 In The Past 12 Months, Has Lack Of Reliable Transportation Kept You From Medical Appointments, Meetings, Work Or From Getting Things Needed For Daily Living? No Information not available 07/07/2023 What Is Your Housing Situation Today? I Have Housing. Information not available 07/07/2023 How Often In The Past Year Have You Used Marijuana (including Smoking, Vaping, Dabbing, Or Edibles)? Never Information not available 07/07/2023 How Often In The Past Year Have You Used Prescription Medications That Were Not Prescribed To You? Never Information n ot available 07/07/2023 How Often In The Past Year Have You Taken Your Own Prescription Medication More Than The Way It Was Prescribed Or For Different Reasons Than Its Intended Purpose? Never Information no t available 07/07/2023 How Often In The Past Year Have You Used Other Drugs (for Example, Heroin, Cocaine, Meth, Salvia, Inhalants)? Never Information not available 07/07/2023 Have You Ever Used IV Drugs? No Information not available 07/07/2023 During The Past Four Weeks Has Your Physical And Emotional Health Limited Your Social Activities With Family And Friends, Neighbors, Or Groups? Not At All Information not available 07/07/2023 During The Past Four Weeks, Was Someone Available To Help You If You Needed And Wanted Help? (For Example, If You Carlton Very Nervous, Lonely, Or Blue; Got Sick And Had To Stay In Bed; Needed Someone To Talk To; Needed Help With Daily Chores; Or Needed Help Just Taking Care Of Yourself.) Yes- As Much As I Wanted Information not available 07/07/2023 During The Past Four Weeks, What Was The Hardest Physical Activity You Could Do For At Least 2 Minutes? Moderate Information not available 07/07/2023 Can You Get To Places Out Of Walking Distance Without Help? (For Example, Can You Travel Alone On Buses Or Taxis, Or Drive Your Own Car?) Yes Information not available 07/07/2023 Can You Go Shopping For Groceries Or Clothes Without Someone? s Help? Yes Information not available 07/07/2023 Can You Prepare Your Own Meals? Yes Information not available 07/07/2023 Can You Do Your Housework Without Help? Yes Information not available 07/07/2023 Because Of Any Health Problems, Do You Need The Help Of Another Person With Your Personal Care Needs Such As Eating, Bathing, Dressing, Or Getting Around The House? No Information not available 07/07/2023 Can You Handle Your Own Money Without Help? Yes Information not available 07/07/2023 Are You Having Difficulties Driving Your Car? No Information no t available 07/07/2023 Do You Always Fasten Your Seat Belt When You Are In A Car? Yes- Usually Information not available 07/07/2023 How Often During The Past Four Weeks Have You Been Bothered By Any Of The Following Problems? Falling Or Dizzy When Standing Up? Never Information not available 07/07/2023 Trouble Eating Well? Always Information not available 07/07/2023 Teeth Or Denture Problems? Never Information not available 07/07/2023 Problems Using The Telephone? Never Information not available 07/07/2023 Tiredness Or Fatigue? Seldom Information not available 07/07/2023 Have You Had 2 Or More Falls Or Sustained An Injury With A Fall In The Last Year? No Information no t available 07/07/2023 Do You Have Difficulty With Walking Or Balance? No Information not available 07/07/2023 Do You Currently Use A Hearing Device? No Information not available 07/07/2023 Do You Currently Have Any Trouble With Your Vision? No Information no t available 07/07/2023 Do You Exercise For About 20 Minutes Three Or More Days A Week? Yes- Most Of The Time Information not available 07/07/2023 Are There Any Safety Concerns In Your Home (see Attached CDC Pamphlet)? No Information not available 07/07/2023 How Often Do You Have Trouble Taking Medicines The Way You Have Been Told To Take Them? I Seldom Take Them As Prescribed Information not available 07/07/2023 How Confident Are You That You Can Control And Manage Most Of Your Health Problems? Very Confident Information not available 07/07/2023 Do You Currently Have Any Difficulty With Your Hearing? Yes Information not available 07/07/2023 Date Of Most Recent SBINS 07/07/2023 Information not available 07/07/2023 What Was The Date Of Your Most Recent Tobacco Screening? 02/11/2024 [email or web address] Information not available 02/11/2024 Sex: Male Functional Status None recorded. Mental Status None recorded. Family History Nothing Reported Notes:Father , age 8 8, dementia. Mother living, 85 CAD hx of stents. He has 8 sibs- HTN, HLD, Obesity No cancers, CAD in the family. Medical History No medical history recorded. Immunizations Vaccine Type Date Status Note Provider Name and Address Organization Details Recorded Time Tdap [address], [place], [address], [facility]. 07/07/2023 15:40:36 Tdap 014 completed Not Available [facility] 03/26/2023 04:25:35 Pneumococcal conjugate PCV 13 021 completed Not Available [facility] 03/26/2023 04:25:36 Influenza, split virus, quadrivalent, preservative 018 completed Not Available [facility] 03/26/2023 04:25:38 Influenza, MDCK, quadrivalent, preservative 020 completed Not Available [facility] 03/26/2023 04:25:39 zoster recombinant 019 completed Not Available [facility] 03/26/2023 04:25:39 zoster recombinant 018 completed Not Available [facility] 03/26/2023 04:25:39 Influenza, high-dose, quadrivalent, PF 021 completed Not Available [facility] 03/26/2023 04:25:39 Influenza, high-dose, quadrivalent, PF 022 completed Not Available [facility] 03/26/2023 04:25:40 COVID-19, mRNA, LNP-S, PF, 100 mcg/0.5mL dose or 50 mcg/0.25mL dose 021 completed Not Available [facility] 03/26/2023 04:25:40 COVID-19, mRNA, LNP-S, PF, 100 mcg/0.5mL dose or 50 mcg/0.25mL dose 021 completed Not Available [facility] 03/26/2023 04:25:40 COVID-19, mRNA, LNP-S, bivalent, PF, 30 mcg/0.3 mL dose 022 completed Not Available [facility] 03/26/2023 04:25:41 pneumococcal polysaccharide PPV23 023 completed Not Available [facility] 03/26/2023 04:25:41 Influenza, high-dose, trivalent, PF 025 cancelled patient objection JOSEPHINE BLANKENSHIP [facility] 05/19/2024 17:13:11 COVID-19, mRNA, LNP-S, PF, joes-sucrose, 30 mcg/0.3 mL 025 cancelled patient objection [facility]ENSH[facility] 05/19/2024 17:13:11 Past Encounters Encounter ID Performer Location Encounter Start Date Encounter Closed Date Diagnosis/Indication Diagnosis SNOMED-CT Code Diagnosis ICD10 Code [id number] GHISLAINE ALANIS PA-C [address] [address] 05/19/2024 16:33:32 05/19/2024 17:10:46 Active or passive immunization 885211478 Z23 Loose stool 081963831 R1 9.5 Screening for malignant neoplasm of prostate 743087345 Z12.5 Gastroesop hageal reflux disease without esophagitis 383876059 K21.9 Health Concerns Section Related Observation LastModified by Organization Detai ls LastModified Time None Recorded Concern Status LastModified by Organization Details LastModified Time None Recorded Payers None recorded. Notes Date Note Type Note Provider Name and Address Organization Details Recorded Time 05/19/2024 text/html Patient consente d to the use of [employer] to record and transcribe notes during this visit. The patient presents with a chief complaint of left lower abdominal pain, which he describes as bad cramps and gurgling. He reports that the pain has been bothering him for quite some time and goes through spells. The patient has a history of diverticulosis, which was discovered during a colonoscopy in January. He has not been consistently using fiber supplements, as he was concerned it would worsen his bowel movements. The patient also reports experiencing acid reflux, which has been bothering him for a while. He has cut back on foods that trigger the reflux, such as ice cream and milk-based products. He denies any fever, nausea, vomiting, blood in the stool, or dark stools. The patient has daily bowel movements, often going to the bathroom 4 or 5 times in the morning with a lot of gas. He also mentions an issue with clear, bad mucus coming out in the morning before bowel movements, which occurs intermittently. [address], [place], [address], [facility]. 05/19/2024 17:13:37
--- OUTSIDE RECORDS SUMMARY | 2024-05-19 19:48 | XMS_ITS | Encounter Summary ---
Author Organization [facility] Address [address] [place] [address] Care Team Providers Care Unemployment Inspector Name Role Phone Unknown, Provider Primary Care Provider Jadyn gonzales Encounter Details Date Type Department Care Team (Late st Contact Info) Description 10/05/2020 Lab Requisition [facility] Pathology & Laboratory Medicine - [facility] [address] [place], [place] [address] Outr Resulting Lab, Provider Social History Tobacco Use Types Packs/Day Years [...] Procedure Name Priority Date/Time Associated Diagnosis Comments CHLAMYDIA/N. GONORRHOEAE AMPLIFIED NUCLEIC ACID Routine 10/04/2020 10:00 EDT documented in this encounter Results * CHLAMYDIA/N. GONORRHOEAE AMPLIFIED RNA (10/04/2020 10:00 EDT) Neisseria gonorrhoeae Result Negative Negative 10/08/2020 10:18 EDT [facility] Chlamydia trachomatis Result Negative Negative 10/08/2020 10:18 EDT [facility] Urine URINE / Unknown 10/04/2020 1 0:00 EDT 10/06/2020 16:21 EDT us Provider Outr Resulting Lab MICROBIOLOGY - GENER AL ORDERABLES Final Result [facility] [address] [place] [address] documented in this encounter Visit Diagnoses Not on filedocumented in this encounter Care Teams Unemployment Inspector Relationship Specialty Start Date End Date Unknown, Provider, PCP - General 01/16/24 documented as of this encounter
--- OUTSIDE RECORDS SUMMARY | 2024-05-19 19:48 | XMS_ITS | Data Portability ---
Author Organization [facility] Address [place] [address] Care Team Providers Care Right Of Way Man Name Role Phone GHISLAINE ALANIS Primary Care Provider NARESH GEORGES Financial Administrator Urologist Assessment Encounter Date Assessment Date Assessment LastModified by Organization Details LastModified Time 12/31/2023 12/31/2023 The patient presents with symptoms suggestive of gastrointestinal disturbance, including abdominal bloating, gurgling, altered bowel habits, and mucus in the stool. The patient will be referred for a colonoscopy to rule out other conditions or complications. Not available 12/31/2023 17:00:58 02/11/2024 02/11/2024 declines covid a nd flu boosters Not available 02/11/2024 11:37:44 05/19/2024 05/19/2024 The total time devoted to today's encounter, including both the dqpl-ki-etjp time with the patient and/or family/caregiver and aax-odcn-fu-face time I personally spent is 30 minutes. Not available 05/19/2024 17:11:06 Plan of Treatment Reminders Order Date Submit Date Provider Last Modified By Organization Details Last Modified Time Details Appointments Follow Up 30 2024 04:30P Efrem ALANIS Not available Not available Not available Annual Wellness Exam 40 2024 08:00A Efrem ALANIS Not available Not available Not available Lab lipid panel, serum 202306 024 [email or web address] Not available 09/24/2023 08:12:25 CMP, serum or plasma 2023 024 [email or web address] Not available 09/24/2023 08:12:25 hemoglobi n A1C, fingersti ck 2023 024 [facility], [address], [place], [address], 02/11/2024 09:35:15 PSA, serum or plasma 2024 025 [facility] (Registration ), [address] [place] [address] [place], [address], 05/19/2024 17:20:32 culture, stool [address] [facility] (Registration ), [address] [place] [address] [place], [address], 05/19/2024 16:53:11 O&P (ova & parasites ), stool [address] [facility] (Registration ), [address] [place] [address] [place], [address], 05/19/2024 16:53:12 CBC w/ auto diff 2024 025 [facility] (Registration ), [address] [place] [address] [place], [address], 05/19/2024 19:20:41 CMP, serum or plasma 2024 025 [facility] (Registration ), [address] [place] [address] [place], [address], 05/19/2024 19:41:46 TSH, serum, reflex free T4 2024 025 [facility] (Registration ), [address] [place] [address] [place], [address], 05/19/2024 17:20:32 H pylori Ag, stool [address] [facility] (Registration ), [address] [place] [address] [place], [address], 05/19/2024 16:53:11 C diff toxin DNA, stool [address] [facility] (Registration ), [address] [place] [address] [place], [address], 05/19/2024 16:53:12 giardia + cryptospo ridium Ag, stool [address] [facility] (Registration ), [address] [place] [address] [place], [address], 05/19/2024 16:53:11 Referral None recorded. Procedures colonosco py screening (PROC) 2023 024 [facility], [address] [place] [address] [place], [address], 02/09/2024 08:41:36 Surgeries None recorded. Imaging None recorded. Medication Orders None recorded. Patient TargetsNo targets recorded. Patient Instructions Encounter Date Encounter Id Patient Instructions Last Modified By Organization Details Last Modified Time 09/02/2023 [id number] Black beans, any russell, lentils, oatmeal. Fruits and all veggies. Stay away from meats. If your constipation returns you can try Metamucil or miralax or docusate sodium 100 mg. If you have tender hemorrhoids you can try witch teodoro, preparation H Can always try a glycerin suppository If your symptoms return please let us know we can try to get you in for your colonoscopy more quickly [email or web address] Not available 09/02/2023 14:45:30 12/31/2023 [id number] take psyllium husk supplements eat more fruits and vegetables A referral has been placed for Allergy Audiology Bariatric Cardio logy Colonoscopy at [facility] ([facility]) [facility] ([facility]). If you do not receive a call to schedule an appointment in 7-10 days, please contact our dispute coordinator at The probiotic can be either a supplement or through foods such as kombucha, cecille chi, sauerkraut, probiotic juice shots netflix- hack your health the secret to gut health Call with any questions or concerns [email or web address] Not available 12/31/2023 15:02:15 02/11/2024 [id number] advance care planning: care instructions [email or web address] Not available 02/11/2024 08:21:14 psyllium husk 2 teaspoons in 8 ounces of water once daily if needed can increase to twice daily after a couple of weeks continue to watch your carbs Call with any questions or concerns Not available 02/11/2024 08:32:35 05/19/2024 [id number] stool studies ordered- bring in sample probiotics and fiber daily blood work today Not available 05/19/2024 16:55:05 Reason for Referral None Reported. Results Created Date Observation Date Name Description Value Unit Range Abnormal Flag Note LastModifiedBy Organization Detail LastModifiedTime 09/24/19 24 09/24/2023 COMPR EHENS MARY METAB OLIC PANEL calcium 9.0 mg/dL 8.5-10 .1 normal Not Available [address] [facility] [place], [address] 09/24/2023 18:59:15 09/24/1909/24/2023 COMPR EHENS MARY METAB OLIC PANEL glucose 114 mg/dL 74-106 high Not Available Kate maldonado [address] [facility] [place], [address] 09/24/2023 18:59:15 09/24/1909/24/2023 COMPR EHENS MARY METAB OLIC PANEL BUN 23 mg/dL 7-18 high Not Available Kate maldonado [address] [place], [address] 09/24/2023 18:59:15 09/24/19 24 09/24/2023 COMPR EHENS MARY METAB OLIC PANEL creatinine 1.1 mg/dL 0.70-1 .30 normal Not Available [address] [facility] [place], [address] 09/24/2023 18:59:15 09/24/19 24 09/24/2023 COMPR EHENS MARY METAB OLIC PANEL estimated GFR 73.12 mL/min /1.73m 2 The eGFR is calcu lated from a serum creat inine using the CKD-E PI 2020 equat ion. Other varia bles requi red for the equat ion are gende r and age; this equat ion does not inclu de a race coeff icien t. This equat ion has simil ar overa ll perfo rmanc e to previ ous equat ions excep t value s may diffe r, in parti cular , in patie nts with highe r value s of eGFR and young er-ag ed adult s. Not Available [address] [facility] [place], [address] 09/24/2023 18:59:15 09/24/19 24 09/24/2023 COMPR EHENS MARY METAB OLIC PANEL total protein 6.8 g/dL 6.4-8. 2 normal Not Available [address] [place], [address] 09/24/2023 18:59:15 09/24/19 24 09/24/2023 COMPR EHENS MARY METAB OLIC PANEL albumin 3.8 g/dL 3.4-5. 0 normal Not Available [address] [place], [address] 09/24/2023 18:59:15 09/24/19 24 09/24/2023 COMPR EHENS MARY METAB OLIC PANEL bilirubin, total 0.5 mg/dL 0.2-1. 0 normal Not Available [address] [place], [address] 09/24/2023 18:59:15 09/24/19 24 09/24/2023 COMPR EHENS MARY METAB OLIC PANEL alk phos 73 U/L 46-116 normal Not Available [address] [place], [address] 09/24/2023 18:59:15 09/24/19 24 09/24/2023 COMPR EHENS MARY METAB OLIC PANEL sodium 140 mmol/ L 136-14 5 normal Not Available [address] [place], [address] 09/24/2023 18:59:15 09/24/19 24 09/24/2023 COMPR EHENS MARY METAB OLIC PANEL potassium 4.3 mmol/ L 3.5-5. 1 normal Not Available [address] [place], [address] 09/24/2023 18:59:15 09/24/19 24 09/24/2023 COMPR EHENS MARY METAB OLIC PANEL chloride 105 mmol/ L 98-107 normal Not Available [address] [place], [address] 09/24/2023 18:59:15 09/24/19 24 09/24/2023 COMPR EHENS MARY METAB OLIC PANEL CO2 29.9 mmol/ L 21.0-3 2.0 normal Not Available [address] [place], [address] 09/24/2023 18:59:15 09/24/19 24 09/24/2023 COMPR EHENS MARY METAB OLIC PANEL anion gap 5.1 mmol/ L 3-11 normal Not Available [address] [place], [address] 09/24/2023 18:59:15 09/24/19 24 09/24/2023 COMPR EHENS MARY METAB OLIC PANEL AST 26 U/L 15-37 normal Not Available Kate [address] [place], [address] 09/24/2023 18:59:15 09/24/19 24 09/24/2023 COMPR EHENS MARY METAB OLIC PANEL ALT 41 U/L 16-63 normal Not Available Kate maldonado [address] [place], [address] 09/24/2023 18:59:15 09/24/19 24 09/24/2023 LIPID 2 cholesterol 164 mg/dL <200 Not Available Teddy madrigal [address] [place], [address] 09/24/2023 18:59:16 09/24/19 24 09/24/2023 LIPID 2 triglyceride 53 mg/dL <150 Not Available [facility] [address] [place], [address] 09/24/2023 18:59:16 09/24/19 24 09/24/2023 LIPID 2 HDL cholesterol 44 mg/dL 40-60 Not Available Claudia freemandanay [facility] [address] [facility] [place], [address] 09/24/2023 18:59:16 09/24/19 24 09/24/2023 LIPID 2 calculated LDL 110 mg/dL <100 high Natio nal Colleen stero l Educa tion Progr am (NCEP -ATPI II) class ifica tions : Colleen stero l <200 mg/dL Nacho able Colleen stero l 200-2 39 mg/dL Borde rline High Colleen stero l >or=2 40 mg/dL High HDL <40 mg/dL Low HDL >or=6 0 mg/dL High LDL <100 mg/dL Optim al LDL 100-1 29 mg/dL Near Optim al/Ab ove Optim al LDL 130-1 59 mg/dL Borde rline High LDL 160-1 89 mg/dL High LDL >or=1 90 mg/dL Very High *The above refer ence range is for adult s 18 years or older . Not Available [facility] [address] [facility] [place], [address] 09/24/2023 18:59:16 02/11/20 24 02/11/2024 hemog lobin A1C, finge rstic k hemoglobin A1C 5.8 % <5.7 Not Available [facility] [address] [place] [address] [address], [place], [address], 02/11/2024 08:40:30 01/31/20 24 09/30/2020 imagi ng/di agnos tic resul t No observ ation record ed. [email or web address] Not Available 01/30 20:09:18 01/31/20 24 04/12/2020 imagi ng/di agnos tic resul t No observ ation record ed. [email or web address] Not Available 01/30 20:09:20 Result Notes None recorded. Problems Name Problem SNOMED Code Status Onset [...] Z00.00; Problem Code Type: ICD-10; Not Available [facility] 3 05:51:15 Ganglion cyst of left wrist 96806647663 9100 Active 2015 Problem Code: M67.432; Problem Code Type: ICD-10; Not Available [facility] 3 05:51:15 Senile hyperker atosis 010691793 Active 2015 Problem Code: L82.1; Problem Code Type: ICD-10; Not Available [facility] 3 05:51:15 Elevated blood-pr essure reading without diagnosi s of hyperten fiona 658540074 Completed 201702/11/2024 10/17/19 23 - Comments only - Ghislaine MCKEON - Blood pressure did come down after sitting. Advised patient to check blood pressure at home and call if consiste ntly greater than 140/90. Advised to limit sodium to 2000 mg/day. Encourag e healthy eating and exercise . Problem Code: R03.0; Problem Code Type: ICD-10; [address], [place], [address] , [place] [facility]. 4 11:35:53 Hyperlip idemia 93990830 Active 201910/17/19 23 - Comments only - Ghislaine MCKEON - Checking direct LDL and CMP as atorvast atin was increase d to 40 mg daily. He has not taken it for the past week. Problem Code: E78.5; Problem Code Type: ICD-10; Not Available [facility] 3 05:51:16 Central scotoma of left eye 68784385537 9100 Active 201905/16/20 20 - Comments only - Ghislaine MCKEON - - no concerni ng findings by [facility] opthalmo logy. Per pt this has now resolved as well. keep appt with Dr Georges for f/u with visual field testing. - will continue to monitor Problem Code: H53.412; Problem Code Type: ICD-10; Not Available [facility] 3 05:51:16 Migraine 60308222 Active 201905/16/20 20 - Comments only - Ghislaine MCKEON - - he has not been having these recently - will continue to monitor Problem Code: G43.909; Problem Code Type: ICD-10; Not Available [facility] 3 05:51:16 Exposure to communic able disease Completed 201904/10/2020 Problem Code: Z20.828; Problem Code Type: ICD-10; Not Available [facility] 3 05:51:16 Shoulder joint pain 706804803 Active 201905/16/20 20 - Comments only - [...] M25.519; Problem Code Type: ICD-10; Not Available [facility] 3 05:51:17 Disorder of male genital organ 35373572 Completed 202009/06/2020 09/04/19 21 - Comments only [...] N50.9; Problem Code Type: ICD-10; Not Available [facility] 3 05:51:17 Hemosper joão 74107280 Active 2020 Problem Code: R36.1; Problem Code Type: ICD-10; Not Available [facility] 3 05:51:17 Asymptom atic microsco pic hematuri a 32459851335 398025 Active 202011/01/19 21 - Comments only - Ghislaine MCKEON - /hematos permia/v aricocel e/hydroc eles - sending urine for microsco py - referral to urology [facility] for further evaluati on Problem Code: R31.21; Problem Code Type: ICD-10; Not Available [facility] 3 05:51:17 History and physical examinat ion, administ rative Completed 202011/01/2020 11/01/19 21 - Comments only - Ghislaine MCEKON - - 2 year card issued. 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. Problem Code: M25.562; Problem Code Type: ICD-10; Not Available [facility] 05:51:18 Prediabe leland 739308777 Active 202010/17/19 23 - Comments only - Ghislaine MCKEON - A1c increase d to 6.2. Discusse d lifestyl e modifica tions. Problem Code: R73.03; Problem Code Type: ICD-10; Not Available [facility] 05:51:18 Perforat ion of left tympanic membrane 07791779884 50617 Completed 202211/10/2022 Problem Code: H72.92; Problem Code Type: ICD-10; Not Available [facility] 05:51:18 Acute pharyngi tis 112334735 Completed 202212/04/2022 12/04/19 23 - Comments only - Ghislaine MCKEON - Negative rapid strep. COVID testing at home was negative . Benign exam. Finish eardrops no signs of current infectio n of the perforat ed eardrum. Continue care with ENT. Discusse d supporti ve care. Discusse d signs and symptoms to follow-u p. Problem Code: J02.9; Problem Code Type: ICD-10; Not Available [facility] 05:51:19 Hypergly cemia 97764784 Completed 202002/10/2023 03/27/20 21 - Comments only - Ghislaine MCKEON - - discussi on about lifestyl e modifica tions with decreasi ng carbs. will do a1c at fasting BW in 6 months Problem Code: R73.9; Problem Code Type: ICD-10; Not Available [facility] 05:51:40 Prostate nodule 38722655183 9109 Active [address], [place], [address] , [facility]. 4 15:39:03 Constipa tion 28771381 Completed 202302/11/2024 GHISLAINE ALANIS PA-C [address], [place], [address] , [facility] 4 11:35:45 Divertic darnell of intestin e 65684362 Active 2023 GHISLAINE ALANIS PA-C [address], [place], [address] , [facility] 4 11:36:14 Problem Notes None recorded. Procedures Surgical History None recorded. Imaging Results Imaging Date Name Status LastModified by Organiz ation Details LastModified Time 09/30/2020 imaging/diag nostic result completed Information not available 01/31/2024 20:09:18 04/12/2020 imaging/diag nostic result completed Information not available 01/31/2024 20:09:20 Procedure Notes None recorded. Medical Equipment None Reported. Allergies Allergen ID Allergen Name Allergen Category Reaction Reaction Severity Criticality Documentation Date Start Date Code Code System Note Provider Name and Address Organization Details Recorded Time 54389 Medicinal product containin g penicilli n and acting as antibacte rial agent (product) medicatio n hives moderate Not available 03/26/20232006 52549 05 SNOMED HIVES Aller gyCod e: '8340 61'; Aller gyNam e: 'PENI CILLI N'; Aller gyCon ceptT ype: 'RX Norm' ; Not Available [facility] 3 16:14:35 Medications Name Sig Start Date [...] and Address Organization Details Last Updated DateTime 4 163.83 cm 36.3 kg/m2 98805.9 2 g 96 % 96 % 67 /min 132 mm[Hg] 74 mm[Hg] DARWIN BEARD MA [facility] 4 14:14:09 Date Recorded Body height Body mass index (BMI) Body weight Oxygen saturation Oxygen saturation in Arterial blood by Pulse oximetry Heart rate Systolic blood pressure Diastolic blood pressure Provider Name and Address Organization Details Last Updated DateTime 4 163.83 cm 35 kg/m2 93882.6 3 g 96 % 96 % 76 /min 124 mm[Hg] 72 mm[Hg] Lito Eisenberg RN [facility] 4 14:32:51 Date Recorded Body height Body mass index (BMI) Body weight Oxygen saturation Oxygen saturation in Arterial blood by Pulse oximetry Heart rate Systolic blood pressure Diastolic blood pressure Provider Name and Address Organization Details Last Updated DateTime 4 163.83 cm 34.8 kg/m2 34190.0 3 g 97 % 97 % 72 /min 128 mm[Hg] 64 mm[Hg] DARWIN BEARD MA [facility] 4 08:04:39 Date Recorded Body height Body mass index (BMI) Body weight Oxygen saturation Oxygen saturation in Arterial blood by Pulse oximetry Heart rate Systolic blood pressure Diastolic blood pressure Provider Name and Address Organization Details Last Updated DateTime 5 163.83 cm 34.7 kg/m2 07784.5 9 g 96 % 96 % 84 /min 144 mm[Hg] 84 mm[Hg] DARWIN BEARD MA [facility] 5 16:36:57 Social History Question Answer Notes LastModified by Organizat ion Details LastModified Time Tobacco Smoking Status Never Smoker MARYAM BOOTHE, [facility] 07/07/2023 13:47:26 Would You Say That, In [...] And Wanted Help? (For Example, If You [place] Very Nervous, Lonely, Or Blue; Got Sick [...] Of Your Most Recent Tobacco Screening? 02/11/2024 [email or web address] Information not available 02/11/2024 Sex: Male Functional [...] Time Tdap [address], [place], [address], [facility] 07/07/2023 15:40:36 Tdap 014 completed Not Available [facility] 03/26/2023 04:25:35 Pneumococcal conjugate PCV 13 021 completed Not Available [facility] 03/26/2023 04:25:36 Influenza, split virus, quadrivalent, preservative 018 completed Not Available [facility] 03/26/2023 04:25:38 Influenza, MDCK, quadrivalent, preservative 020 completed Not Available [facility] 03/26/2023 04:25:39 zoster recombinant 019 completed Not Available [facility] 03/26/2023 04:25:39 zoster recombinant 018 completed Not Available [facility] 03/26/2023 04:25:39 Influenza, high-dose, quadrivalent, PF 021 completed Not Available [facility] 03/26/2023 04:25:39 Influenza, high-dose, quadrivalent, PF 022 completed Not Available [facility] 03/26/2023 04:25:40 COVID-19, mRNA, LNP-S, PF, 100 mcg/0.5mL dose or 50 mcg/0.25mL dose 021 completed Not Available [facility] 03/26/2023 04:25:40 COVID-19, mRNA, LNP-S, PF, 100 mcg/0.5mL dose or 50 mcg/0.25mL dose 021 completed Not Available [facility] 03/26/2023 04:25:40 COVID-19, mRNA, LNP-S, bivalent, PF, 30 mcg/0.3 mL dose 022 completed Not Available [facility] 03/26/2023 04:25:41 pneumococcal polysaccharide PPV23 023 completed Not Available [facility] 03/26/2023 04:25:41 Influenza, high-dose, trivalent, PF 025 cancelled patient objection DARWIN BEARD MA [facility] 05/19/2024 17:13:11 COVID-19, mRNA, LNP-S, PF, jose-sucrose, 30 mcg/0.3 mL 025 cancelled patient objection DARWIN BEARD MA [facility] 05/19/2024 17:13:11 Past Encounters Encounter ID Performer Location Encounter Start Date Encounter Closed Date Diagnosis/Indication Diagnosis SNOMED-CT Code Diagnosis ICD10 Code [id number] GHISLAINE ALANIS PA-C [address] [address] 07/07/2023 13:26:34 07/07/2023 15:11:51 Adult health examination 446443323 Z00.00 Screening for malignant neoplasm of colon 421338421 Z12.11 Active or passive immunization 541604350 Z23 Prediabetes 426587376 R7 3.03 Hyperlipidemia 35728096 E78.5 Obesity 996420184 E66.9 Prostate nodule 94896128 01 58747 N40.2 Pain of le ft knee joint 1546762932 39780 M25.175 [id number] LOREN NEWTON [address] [address] 09/02/2023 14:08:01 09/02/2023 14:50:13 Constipation 39812443 K59.00 [id number] Lito Eisenberg RN [address] [address] 09/24/2023 07:54:13 09/24/2023 08:34:33 Hyperlipidemia 31877526 E78.5 [id number] GHISLAINE ALANIS[address] [address] 12/31/2023 14:25:47 12/31/2023 15:12:16 Altered bowel function 01224716 R19.4 [id number] GHISLAINE ALANIS[address] [address] 02/11/2024 07:58:54 02/11/2024 08:33:32 Advance directive discussed with patient 556397469 Z71.89 Prediabetes 697603250 R7 3.03 Obesity 138687596 E66.9 Hyperlipidemia 61603939 E78.5 Diverticul a of intestine 82512649 K57.90 [id number] GH[address]LAINE AL[address]IS[address] [address] 05/19/2024 16:33:32 05/19/2024 17:10:46 Active or passive immunization 679859019 Z23 Loose stool 869032609 R1 9.5 Screening for malignant neoplasm of prostate 428454013 Z12.5 Gastroesop hageal reflux disease without esophagitis 039835299 K21.9 Health Concerns Section Related Observation LastModified by Organization Detai ls LastModified Time None Recorded Concern Status LastModified by Organization Details LastModified Time None Recorded Advance Directives Directive None Recorded Payers Encounter Date Sequence Insurance Name Policy Number Policy Giraldo Covered Member ID Giraldo Member ID Guarantor Name 09/02/2023 1 [facility] - MEDICARE ADVANTAGE (MEDICARE REPLACEMENT O) [id number] Eduardo Parks [id number] Eduardo Parks 09/24/2023 1 [facility] [place]ARE [place]AC[place] H[place]) [id number] Eduardo Parks [id number] Eduardo Parks 12/31/2023 1 [facility] [place]AC[place] [id number] Eduardo Parks [id number] Eduardo Parks 02/11/2024 1 [facility] [place]) [id number] Eduardo Parks [id number] Eduardo Parks Notes Date Note Type Note Provider Name and Address Organization Details Recorded Time 09/02/2023 text/html cc bowel issues/hemorrhoids. Was supposed to be scheduled for colonoscopy in June but was having terrible rectal pain. Has had constipation for 8 weeks. Had urge to go multiple x a day and was pushing alot, used preparation H 4 days ago and then had a good BM, the next day he used it again and had another good BM.Urge to defecate has resolved, now moving once daily and having a decent BM Currently no rectal pain, never saw any blood, has no burning pain. 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 He and his are working on dietary changes, they bought fruits and yogurts, they are decreasing sweets. CHANDRA ROBERTSON, CLASS A LINEMAN [address], [place], [address], [facility]. 09/02/2023 16:53:04 12/31/2023 text/html Patient presents with abdominal bloating, gurgling, altered bowel habits, mucus in stool, and weight loss. Abdominal bloating and gurgling: Patient, a 68-year-old male, reports experiencing abdominal bloating and gurgling for the past couple of months. He mentions that his stomach constantly makes loud noises, especially in the morning. Altered bowel habits: The patient has had abnormal bowel movements for over 2 months, with stools being soft, thinner than usual, and occurring around 7 times a day without diarrhea. The patient has not had a normal stool in this period and has been experiencing cramping. Mucus in stool: Patient reports almost every time he goes to the bathroom, he notices a clear yellow mucus when he wipes. Weight loss: Patient has lost 7 pounds recently, which he attributes to eating less intentionally - Patient due for colonoscopy in March, but will be moved up due to the change in symptoms. last colo in 2013 was normal. no polyps or diverticulosis. - Patient consumes popsicles frequently, which may contribute to prediabetes - Patient has dentures, making it difficult to chew certain foods - No fever, chills, or sweats - No nausea or vomiting - No blood in stool or black tarry stools GHISLAINE ALANIS PA-C [address], [place], [address], [facility]. 12/31/2023 17:05:06 02/11/2024 text/html Patient consente d to the use of [employer]xim[employer] to record and transcribe notes during this visit. Patient presents for follow-up after a recent colonoscopy. The colonoscopy results showed no polyps or colitis, only diverticulosis. The patient reports not yet implementing the recommended fiber intake changes. They have made some dietary changes, such as avoiding popsicles, ice cream, and chocolate. The patient has increased fruit and vegetable consumption, with a preference for fruit over vegetables. They mention difficulty chewing carrots due to dentures. The patient reports having at least one complete bowel movement per day and has not experienced constipation in months. They describe their current stool as loose with particles. A1c is stable at 5.8 pt takes atorvastatin irregularly. he admits sometimes he does well with taking it regularly and other times he forgets. GHISLAINE ALANIS PA-C [address], [place], [address], [facility]. 02/11/2024 11:38:00 05/19/2024 text/html Patient consente d to the use of Proxim[employer] to record and transcribe notes during this [...] morning before bowel movements, which occurs intermittently. GHISLAINE ALANIS PA-C [address], [place], [address], [facility]. 05/19/2024 17:13:37
--- OUTSIDE RECORDS SUMMARY | 2024-05-19 19:48 | XMS_ITS | Referral Summary ---
Author Organization [facility] Address [address] [place] [address] Care Team Providers Care Doctor'S Assistant Name Role Phone Unknown, Provider Primary Care Provider Unava ilable Social History Tobacco Use Types Packs/Day Years Used Date Smoking Tobacco: Never Assessed Interpersonal Safety Answer Date Record ed Physically Hurt Never 09/27/2020 Verbally Threaten Not on file 09/27/2020 Sex and Gender Information Value Date Recorded Sex Assigned at Not on file Legal Sex Male 11:35 EDT Gender Identity Not on file Sexual Orientation Not on file Plan of Treatment Not on file Insurance [facility] MEDICARE [facility] Care Teams Doctor'S Assistant Relationship Specialty Start Date End Date Unknown, Provider, PCP - General 01/16/24
--- OUTSIDE RECORDS SUMMARY | 2024-05-19 19:48 | XMS_ITS | Encounter Summary ---
Author Organization [facility] Address [address] [place] [address] Care Team Providers Care Face Worker Name Role Phone Unknown, Provider Primary Care Provider Jadyn gonzales Encounter Details Date Type Department Care Team (Late st Contact Info) Description 06/18/2022 Lab Requisition [facility] Pathology & Laboratory Medicine - [facility] [address] [place] [address] Outr Resulting Lab, Provider Social History Tobacco [...] Procedure Name Priority Date/Time Associated Diagnosis Comments PSA TOTAL, DIAGNOSTIC Routine 06/18/2022 11:00 EST documented in this encounter Results * PSA TOTAL, DIAGNOSTIC (06/18/2022 11:00 EST) PSA 2.0 <=4.5 ng/mL 06/18/2022 22:08 EST [facility] Blood VENOUS BLOOD / Unknown 06/18/2022 11:00 EST 06/18/2022 21:18 EST Narrative [facility] - 06/18/2022 22:08 EST NOTE: Serum PSA concentration should not be interpreted as absolute evidence for the presence or absence of malignant disease. Assayed on Siemens ADVIA [employer]knowledgeaur XPT using chemiluminescent technology.??Values obtained by using different assay methods cannot be used interchangeably. us Provider Outr Resulting Lab CHEMISTRY & BLOOD GA S ORDERABLES Final Result [facility] [address] [place] [address] documented in this encounter Visit Diagnoses Not on filedocumented in this encounter Care Teams Face Worker Relationship Specialty Start Date End Date Unknown, Provider, PCP - General 01/16/24 documented as of this encounter
--- OUTSIDE RECORDS SUMMARY | 2024-05-19 19:48 | XMS_ITS | Clinical Summary ---
Author Organization [facility] Address [address] [place] [address] Care Team Providers Care Electronic Scanner Operator Name Role Phone Unknown, Provider Primary Care [...] Orientation Not on file Plan of Treatment Health Maintenance Due Date Last Done Comments Hepatitis C Screen 1955 Fall Risk Screening 11/30/2019 COVID-19 Vaccine (2023-25 season) 2024 RSV Immunization ( o r 60+ Years) (1 - 1-dose 75+ series) 2029 Insurance [employer] MEDICARE [facility] Care Teams Electronic Scanner Operator Relationship Specialty Start Date End Date Unknown, Provider, PCP - General 01/16/24
--- OUTSIDE RECORDS SUMMARY | 2024-05-19 19:49 | XMS_ITS | Encounter Summary ---
Author Organization [facility] Address [address] [place] [address] Care Team Providers Care Product Safety Specialist Name Role Phone Unknown, Provider Primary Care Provider Jadyn gonzales Encounter Details Date Type Department Care Team (Late st Contact Info) Description 09/27/2020 Lab Requisition [facility] Pathology & Laboratory Medicine - [facility] [address], [place] [id number] Outr Resulting Lab, Provider Social History Tobacco [...] Associated Diagnosis Comments PSA TOTAL, DIAGNOSTIC Routine 09/26/2020 14:00 EDT documented in this encounter Results * PSA TOTAL, DIAGNOSTIC (09/26/2020 14:00 EDT) PSA 1.8 0.0 - 4.5 ng/mL 09/27/2020 16:55 EDT [facility] Blood VENOUS BLOOD / Unknown 09/26/2020 14:00 EDT 09/27/2020 16:00 EDT Narrative [facility] - 09/27/2020 16:55 EDT NOTE: Serum PSA concentration should not be interpreted as absolute evidence for the presence or absence of malignant disease. Assayed on Siemens ADVIA [employer]erg[employer]aur XPT using chemiluminescent technology.??Values obtained by using different assay methods cannot be used interchangeably. us Provider Outr Resulting Lab CHEMISTRY & BLOOD GA S ORDERABLES Final Result [facility] [address] [place] [address] documented in this encounter Visit Diagnoses Not on filedocumented in this encounter Care Teams Product Safety Specialist Relationship Specialty Start Date End Date Unknown, Provider, PCP - General 01/16/24 documented as of this encounter
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
--- OUTSIDE RECORDS SUMMARY | 2024-05-19 19:49 | XMS_ITS | Encounter Summary ---
[place] [address] Care Team Providers Care Jump Roll Operator Name Role Phone Unavailable Primary Care Provider Unavailabl e Encounter Details Date Type Department Care Team (Latest Contact Info) Description 01/19/2023 Travel Social History Tobacco Use Types Packs/Day Years Used Date Smoking Tobacco: Never Smokeless Tobacco: Never Sex and Gender Information Value Date Recorded Sex Assigned at Not on file Gender Identity Not on file Sexual Orientation Not on file documented as of this encounter Plan of Treatment Not on file documented as of this encounter Visit Diagnoses Not on filedocumented in this encounter
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
--- OUTSIDE RECORDS SUMMARY | 2024-05-19 19:49 | XMS_ITS | Encounter Summary ---
[place] [address] Care Team Providers Care Glass Cylinder Flanger Name Role Phone Unavailable Primary Care Provider Unavailabl e Encounter Details Date Type Department Care Team (Latest Contact Info) Description 11/26/2022 Travel Social History Tobacco Use Types Packs/Day [...]
--- OUTSIDE RECORDS SUMMARY | 2024-05-19 19:49 | XMS_ITS | Encounter Summary ---
[place] [address] Care Team Providers Care Insolvency Practitioner Name Role Phone Unavailable Primary Care Provider Unavailabl e Reason for Referral * Consultation (Urgent) - Closed Specialty Diagnoses / Procedures Referred By Bri schneider Referred To Contact Otolaryngology Diagnoses Acute suppurative otitis media of left ear with spontaneous rupture of tympanic membrane, recurrence not specified Zhou Timmons MD [address] [place] [address] [place] [address] [facility] [address] [place] [id number] Referral ID Status Reason Start Date Expiration Date V isits Requested Visits Authorized [id number] Closed Consult, Test & Treat PCP Updated and/or Approved 11/09/2022 11/09/2023 6 6 Encounter Details Date Type Department Care Team (Latest Contact Info) Description 11/09/2022 Transcribe Orders eDH Incoming Referrals [phone] Zhou Timomns MD [address] [place] [phone] Acute suppurative otitis media of left ear with spontaneous rupture of tympanic membrane, recurrence not specified Social History Tobacco Use Types Packs/Day Years Used Date Smoking Tobacco: Never Assessed Sex and Gender Information Value Date Recorded Sex Assigned at Not on file Gender Identity Not on file Sexual Orientation Not on file documented as of this encounter Plan of Treatment Scheduled Referrals Name Type Priority Associated Diagnoses Orde r Schedule Referral to ENT Outpatient Referral Urgent Acute suppurative otitis media of left ear with spontaneous rupture of tympanic membrane, recurrence not specified Ordered: 11/09/2022 documented as of this encounter Visit Diagnoses Diagnosis Acute suppurative otitis media of left ear with spontaneous rupture of tympanic membrane, recurrence not specified documented in this encounter
--- OUTSIDE RECORDS SUMMARY | 2024-05-19 19:49 | XMS_ITS | Encounter Summary ---
Author Organization [facility] Address [facility] [address] [place] [address] Care Team Providers Care Staff Air Tactical Officer Name Role Phone None Primary Care Provider Unavailabl e Reason for Visit * Reason Comments Follow-up Cerumen Impaction Encounter Details Date Type Department Care Team (Late st Contact Info) Description 01/19/2023 3:40 PM EDT Office [place] [address] Selwyn Silveira III, MD [facility] [place] [address] Laceration of left ear canal, initial encounter Social History Tobacco Use Types Packs/Day Years Used Date Smoking Tobacco: Never Smokeless Tobacco: Never Sex and Gender Information Value Date Recorded Sex Assigned at Not on file Gender Identity Not on file Sexual Orientation Not on file documented as of this encounter Progress Notes * Selwyn Silveira III, MD - 01/19/2023 3:40 PM EDT Otolaryngology Follow Up Note: Eduardo Parks returns for recheck of his left ear. His hearing has returned to normal, and there has been no drainage. Review of Systems: A complete review of constitutional, eyes, cardiovascular, respiratory, GI, , musculo-skeletal, skin, endocrine, psychiatric, hematologic, lymphatic and immunologic systems is completed and is as noted in the HPI. All other systems are otherwise negative. Examination shows the following: GENERAL: Well developed, well appearing, no acute distress. Vitals reviewed. HEAD/FACE/EYES: Normocephalic with no gross deformity. Extraocular movements intact. EARS: Normal exam of the external ear, ear canal, and middle ear bilaterally. The left canal has healed completely. NOSE: Normal external nasal exam. Septum midline. Turbinates are normal. SALIVARY: Parotid and submandibular glands are normal to inspection and palpation. ORAL CAVITY: Normal exam of oral tongue Normal mucosa without lesion Floor of mouth is soft. Dentition good repair OROPHARYNX: Normal tonsils. Normal soft palate and uvula. Posterior pharyngeal wall normal. LARYNX: Vocal cords normal. Vocal mobility normal. No mucosal lesions noted. NECK: No asymmetry on inspection No adenopathy. Normal thyroid. RESPIRATORY: Normal voice. No stridor. Normal respirations. CV: Normal carotid pulses. NEURO/PSYCH: Normal affect. Alert and oriented x 3. Responds appropriately to questions. CN II-XII grossly intact. PROCEDURES: IMPRESSION: Resolved ear canal injury. We will see him again only as needed. documented in this encounter Plan of Treatment Not on file documented as of this encounter Visit Diagnoses Diagnosis Laceration of left ear canal, initial encounter documented in this encounter Care Teams Staff Air Tactical Officer Relationship Specialty Start Date End Date None None PCP - General 01/20/23 documented as of this encounter
--- OUTSIDE RECORDS SUMMARY | 2024-05-19 19:49 | XMS_ITS | Clinical Summary ---
Author Organization [facility] Address [facility] [address] [place] [address] Care Team Providers Care Activity Aid Name Role Phone None Primary Care Provider Unavailabl e Allergies Active Allergy Reactions Criticality Noted Date Comments Penicillin Other (See Comments) Medium 11/26/2022 Medications Medication Sig Dispensed Refills Start Date End Date Status atorvastatin (Lipitor) 40 mg tablet Take 40 mg by mouth daily. 10/18/2022 Active Active Problems Problem Noted Date Diagnosed Date Sensorineural hearing loss ( SNHL) of right ear with restricted hearing of left ear 11/26/2022 Mixed conductive and sensori neural hearing loss of left ear with restricted hearing of right ear 11/26/2022 Social History Tobacco Use Types Packs/Day Years Used Date Smoking Tobacco: Never Smokeless Tobacco: Never Tobacco Cessation:Counseling Given: Not Answered Sex and Gender Information Value Date Recorded Sex Assigned at Not on file Gender Identity Not on file Sexual Orientation Not on file Last Filed Vital Signs Vital Sign Reading Time Taken Comments Blood Pressure - - Pulse - - Temperature - - Respiratory Rate - - Oxygen Saturation - - Inhaled Oxygen Concentration - - Weight 95.3 kg (210 lb) 11/26/2022 8:33 AM EDT Height 165.1 cm (5' 5) 11/26/2022 8:33 AM EDT Body Mass Index 34.95 11/26/2022 8:33 AM EDT Plan of Treatment Health Maintenance Due Date Last Done Comments CT Colonography 1954 Colonoscopy 1954 Colorectal Cancer Screening 1954 FIT DNA 1954 FIT 1954 Sigmoidoscopy (10 year) with FIT yearly 1954 Sigmoidoscopy 1954 Hepatitis C Screening 1972 Tetanus/Diphtheria/Pertussis Vaccines (1 - Tdap) 11/29 Diabetes Screening (HgbA1C or Glucose) 1994 Pneumoccocal Vaccine: 65+ (1 of 1 - PCV) 2004 Zoster vaccine (1 of 2) 2004 Advance Directive 2009 Covid-19 Vaccine (1 - 2023- season) 2024 Influenza (Flu) vaccine (1 o f 1 - Influenza standard series) 01/16/2024 Care Teams Activity Aid Relationship Specialty Start Date End Date None None PCP - General 01/20/23
[2024-05-22 09:55] LABS: PSA, Screening 2.2 ng/mL (<=4.5)
== END 2024-05-19 19:48 | disposition home or self-care (01) ==
LOC: NCHCN 19:47
PROVIDERS: PCP Physician Assistant; Visit Provider Physician Assistant
DX: R19.5 Other fecal abnormalities (principal); Z12.5 Encounter for screening for malignant neoplasm of prostate
CPT/HCPCS: 80053; 84153; 84443; 85025